=== PATIENT | female | born 1980 | race Caucasian/White ===

== ENCOUNTER 2016-12-05 10:20 | Outpatient (CLI) | payer OTHER ==
[2016-12-05 10:57] LABS: BASOPHILS # (AUTO) 0.1 K/uL (0.0-0.2); EOSINOPHILS # (AUTO) 0.1 K/uL (0.0-0.4); EOSINOPHILS % (AUTO) 1.9 % (0.0-4.0); HEMATOCRIT 38.8 % (36-48); LYMPHOCYTES # (AUTO) 2.3 K/uL (1.0-5.5); LYMPHOCYTES % (AUTO) 42.5 % (20.5-51.5); MEAN CORPUSCULAR HEMOGLOBIN 29 pg (27-31); MEAN CORPUSCULAR HGB CONC 33 % (32-36); MEAN CORPUSCULAR VOLUME 87 fL (79.0-98.0); MONOCYTES # (AUTO) 0.4 K/uL (0.0-1.0); MONOCYTES % (AUTO) 6.9 % (1.7-9.3); NEUTROPHILS # (AUTO) 2.6 K/uL (1.8-7.7); NEUTROPHILS % (AUTO) 47.7 % (40.0-70.0); PLATELET COUNT (AUTO) 273 K/uL (130-430); RED BLOOD CELL COUNT(AUTO) 4.47 MIL/uL (4.2-6.2); RED CELL DISTRIBUTION WIDTH 12.6 % (9.0-15.0); WHITE BLOOD COUNT (AUTO) 5.5 K/uL (4.8-10.8)
[2016-12-05 11:18] LABS: CALCIUM 8.7 mg/dL (8.4-11.0); CREATININE 0.65 mg/dL (0.55-1.30); POTASSIUM 3.8 mmol/L (3.5-5.1); THYROID STIMULATING HORMONE 1.93 uIu/mL (0.34-4.82)
[2016-12-05 17:48] LABS: BILIRUBIN,URINE NEGATIVE (NEGATIVE); BLOOD, URINE NEGATIVE (NEGATIVE); CLARITY/URINE CLEAR (CLEAR); COLOR,URINE YELLOW (YELLOW); GLUCOSE,URINE NEGATIVE (NEGATIVE); KETONES,URINE NEGATIVE (NEGATIVE); LEUKOCYTE ESTERASE ,URINE NEGATIVE (NEGATIVE); NITRITE, URINE NEGATIVE (NEGATIVE); PROTEIN URINE NEGATIVE (NEGATIVE); UROBILINOGEN,URINE 0.2 (0.2-1.0)
== END 2016-12-05 20:09 | disposition home or self-care (01) ==
LOC: SLB 10:20
PROVIDERS: ATTEND Psychiatry & Neurology Neurology
DX: N39.0 Urinary tract infection, site not specified (principal)
CPT/HCPCS: 36415; 80048; 81003; 82306; 82607; 84443-TC; 84450-TC; 84460-TC; 85025; 87086

== ENCOUNTER 2016-12-13 08:39 | Outpatient (CLI) | payer OTHER | END 2016-12-13 20:09 | disposition home or self-care (01) | LOC: SMI 08:39 | PROVIDERS: ATTEND Psychiatry & Neurology Neurology | DX: M50.21 Other cervical disc displacement, high cervical region (principal); G35 Multiple sclerosis; M50.31 Other cervical disc degeneration, high cervical region; G25.2 Other specified forms of tremor | CPT/HCPCS: 70553; 72156 ==

== ENCOUNTER 2016-12-17 10:33 | Outpatient (CLI) | payer OTHER ==
[2016-12-17] MEDS ORDERED: GADOPENTETATE DIMEGLUMINE 15 ML VIAL IV ONE (11:45)
== END 2016-12-17 21:08 | disposition home or self-care (01) ==
LOC: SMI 10:33
PROVIDERS: ATTEND Internal Medicine
DX: G35 Multiple sclerosis (principal)
CPT/HCPCS: 72157; A9579

== ENCOUNTER 2017-01-05 09:53 | Outpatient (CLI) | payer OTHER ==
[2017-01-05 10:56] LABS: INR 0.9 (0.8-1.2); PROTHROMBIN TIME 10.1 SECS (9.5-12.5)
[2017-01-05 11:04] LABS: CALCIUM 9.4 mg/dL (8.4-11.0); CREATININE 0.73 mg/dL (0.55-1.30); POTASSIUM 4.4 mmol/L (3.5-5.1)
== END 2017-01-05 20:25 | disposition home or self-care (01) ==
LOC: SLB 09:53
DX: Z01.812 Encounter for preprocedural laboratory examination (principal)
CPT/HCPCS: 36415; 80048; 84702-TC; 85610-TC; 85730-TC

== ENCOUNTER 2017-03-04 12:58 | Outpatient (CLI) | payer OTHER | END 2017-03-04 20:19 | disposition home or self-care (01) | LOC: SLB 12:58 | PROVIDERS: ATTEND Specialist | DX: G35 Multiple sclerosis (principal); N91.2 Amenorrhea, unspecified | CPT/HCPCS: 36415; 82306; 84144; 84702-TC ==

== ENCOUNTER 2017-03-06 08:01 | Outpatient (CLI) | payer OTHER | END 2017-03-06 20:21 | disposition home or self-care (01) | LOC: SMI 08:01 | PROVIDERS: ATTEND Psychiatry & Neurology Neurology | DX: G35 Multiple sclerosis (principal); N91.2 Amenorrhea, unspecified | CPT/HCPCS: 36415; 84144; 84702-TC ==

== ENCOUNTER 2017-05-23 09:56 | Outpatient (CLI) | payer OTHER ==
[2017-05-23 10:46] LABS: BASOPHILS % (AUTO) 0.4 % (0.0-2.0); EOSINOPHILS % (AUTO) 0.5 % (0.0-4.0); HEMATOCRIT 39.2 % (36-48); HEMOGLOBIN 12.9 g/dL (12.0-16.0); LYMPHOCYTES # (AUTO) 1.7 K/uL (1.0-5.5); LYMPHOCYTES % (AUTO) 21.3 % (20.5-51.5); MEAN CORPUSCULAR HEMOGLOBIN 28 pg (27-31); MEAN CORPUSCULAR HGB CONC 33 % (32-36); MEAN CORPUSCULAR VOLUME 85 fL (79.0-98.0); MONOCYTES # (AUTO) 0.4 K/uL (0.0-1.0); MONOCYTES % (AUTO) 5.5 % (1.7-9.3); NEUTROPHILS # (AUTO) 5.7 K/uL (1.8-7.7); NEUTROPHILS % (AUTO) 72.3 % (40.0-70.0); PLATELET COUNT (AUTO) 301 K/uL (130-430); RED BLOOD CELL COUNT(AUTO) 4.62 MIL/uL (4.2-6.2); RED CELL DISTRIBUTION WIDTH 11.8 % (9.0-15.0); WHITE BLOOD COUNT (AUTO) 7.8 K/uL (4.8-10.8)
[2017-05-27 14:00] LABS: HEPATITIS B SURFACE AG Negative (Negative); RUBELLA AB, IgG 1.13 index (Immune >0.99)
== END 2017-05-23 20:19 | disposition home or self-care (01) ==
LOC: SLB 09:56
PROVIDERS: ATTEND Specialist
DX: Z34.92 Encounter for supervision of normal pregnancy, unspecified, second trimester (principal)
CPT/HCPCS: 36415; 84443-TC; 85025; 86592; 86762; 86886; 86900; 86901; 87086; 87340

== ENCOUNTER 2017-08-21 08:56 | Outpatient (CLI) | payer OTHER ==
[2017-08-21 10:25] LABS: BASOPHILS % (AUTO) 0.4 % (0.0-2.0); EOSINOPHILS # (AUTO) 0.1 K/uL (0.0-0.4); EOSINOPHILS % (AUTO) 0.8 % (0.0-4.0); HEMATOCRIT 37.4 % (36-48); HEMOGLOBIN 12.2 g/dL (12.0-16.0); MEAN CORPUSCULAR HEMOGLOBIN 28 pg (27-31); MEAN CORPUSCULAR HGB CONC 33 % (32-36); MEAN CORPUSCULAR VOLUME 85 fL (79.0-98.0); MONOCYTES # (AUTO) 0.4 K/uL (0.0-1.0); MONOCYTES % (AUTO) 4.4 % (1.7-9.3); NEUTROPHILS # (AUTO) 7.7 K/uL (1.8-7.7); NEUTROPHILS % (AUTO) 74.4 % (40.0-70.0); PLATELET COUNT (AUTO) 304 K/uL (130-430); RED BLOOD CELL COUNT(AUTO) 4.41 MIL/uL (4.2-6.2); RED CELL DISTRIBUTION WIDTH 11.8 % (9.0-15.0); WHITE BLOOD COUNT (AUTO) 10.2 K/uL (4.8-10.8)
== END 2017-08-21 18:36 | disposition home or self-care (01) ==
LOC: SLB 08:56
PROVIDERS: ATTEND Specialist
DX: O99.019 Anemia complicating pregnancy, unspecified trimester (principal); D50.9 Iron deficiency anemia, unspecified; O09.529 Supervision of elderly multigravida, unspecified trimester; Z3A.00 Weeks of gestation of pregnancy not specified
CPT/HCPCS: 36415; 82947-TC; 85025; 86592

== ENCOUNTER 2017-09-16 16:37 | Outpatient (CLI) | payer OTHER ==
[2017-09-16 17:38] LABS: HEMATOCRIT 36.3 % (36-48); MEAN CORPUSCULAR HEMOGLOBIN 28 pg (27-31); MEAN CORPUSCULAR HGB CONC 33 % (32-36); MEAN CORPUSCULAR VOLUME 84 fL (79.0-98.0); PLATELET COUNT (AUTO) 264 K/uL (130-430); RED CELL DISTRIBUTION WIDTH 11.9 % (9.0-15.0); WHITE BLOOD COUNT (AUTO) 13.7 K/uL (4.8-10.8)
[2017-09-16 18:01] LABS: ALBUMIN 2.5 g/dL (3.4-4.8); CALCIUM 8.6 mg/dL (8.4-11.0); CREATININE 0.55 mg/dL (0.55-1.30); POTASSIUM 3.2 mmol/L (3.5-5.1); TOTAL BILIRUBIN 0.5 mg/dL (0.0-1.0)
[2017-09-16 19:16] LABS: BILIRUBIN,URINE 1+ (NEGATIVE); BLOOD, URINE NEGATIVE (NEGATIVE); CLARITY/URINE CLEAR (CLEAR); COLOR,URINE YELLOW (YELLOW); GLUCOSE,URINE NEGATIVE (NEGATIVE); KETONES,URINE 1+ (NEGATIVE); LEUKOCYTE ESTERASE ,URINE NEGATIVE (NEGATIVE); NITRITE, URINE NEGATIVE (NEGATIVE); PH,URINE 6.5 (5.0-8.0); PROTEIN URINE TRACE (NEGATIVE); UROBILINOGEN,URINE 0.2 (0.2-1.0)
[2017-09-16 19:38] LABS: BACTERIA,URINE FEW /HPF (None Seen); MUCUS,URINE 2+ /LPF (None Seen); RBC,URINE 0-3 /HPF (0-3); WBC,URINE 0-3 /HPF (0-3)
[2017-09-16 21:31] LABS: BAND % (MANUAL) 16 % (0-6)
[2017-09-16 21:32] LABS: ATYPICAL LYMPHOCYTES % 24 % (0-0); BASOPHILS % (MANUAL) 0 % (0-2); EOSINOPHILS % (MANUAL) 3 % (0-7); LYMPHOCYTES % (MANUAL) 21 % (20-46); MONOCYTES % (MANUAL) 6 % (0-11)
== END 2017-09-16 19:23 | disposition home or self-care (01) ==
LOC: SLB 16:37
PROVIDERS: ATTEND Internal Medicine
DX: J11.1 Influenza due to unidentified influenza virus with other respiratory manifestations (principal)
CPT/HCPCS: 36415; 80053; 81000-TC; 82306; 82607; 85007; 85027

== ENCOUNTER 2017-09-20 06:59 | Outpatient (CLI) | payer OTHER ==
[2017-09-20 07:38] LABS: HEMATOCRIT 34.7 % (36-48); HEMOGLOBIN 11.6 g/dL (12.0-16.0); MEAN CORPUSCULAR HEMOGLOBIN 28 pg (27-31); MEAN CORPUSCULAR HGB CONC 33 % (32-36); MEAN CORPUSCULAR VOLUME 83 fL (79.0-98.0); PLATELET COUNT (AUTO) 261 K/uL (130-430); RED CELL DISTRIBUTION WIDTH 12.7 % (9.0-15.0); WHITE BLOOD COUNT (AUTO) 13.3 K/uL (4.8-10.8)
[2017-09-20 08:24] LABS: ALBUMIN 2.4 g/dL (3.4-4.8); CALCIUM 8.6 mg/dL (8.4-11.0); CREATININE 0.53 mg/dL (0.55-1.30); POTASSIUM 3.8 mmol/L (3.5-5.1); TOTAL BILIRUBIN 0.6 mg/dL (0.0-1.0)
[2017-09-20 09:34] LABS: BASOPHILS % (MANUAL) 0 % (0-2); EOSINOPHILS % (MANUAL) 1 % (0-7); LYMPHOCYTES % (MANUAL) 17 % (20-46); MONOCYTES % (MANUAL) 18 % (0-11)
[2017-09-20 09:37] LABS: OTHER CELLS,MANUAL % 12 (0-0)
== END 2017-09-20 20:22 | disposition home or self-care (01) ==
LOC: SLB 06:59
PROVIDERS: ATTEND Specialist
DX: Z34.93 Encounter for supervision of normal pregnancy, unspecified, third trimester (principal); R79.89 Other specified abnormal findings of blood chemistry
CPT/HCPCS: 36415; 80053; 85007; 85027

== ENCOUNTER 2017-09-28 12:27 | Outpatient (CLI) | payer OTHER ==
[2017-09-28 13:10] LABS: ALBUMIN 2.3 g/dL (3.4-4.8); BILIRUBIN,DIRECT 0.2 mg/dL (0.0-0.3); TOTAL BILIRUBIN 0.3 mg/dL (0.0-1.0)
== END 2017-09-28 20:30 | disposition home or self-care (01) ==
LOC: SLB 12:27
PROVIDERS: ATTEND Specialist
DX: R79.89 Other specified abnormal findings of blood chemistry (principal)
CPT/HCPCS: 36415; 80076

== ENCOUNTER 2017-11-04 10:42 | Inpatient (IN) | payer OTHER ==
[~2017-11-04] VITALS: Ht 162.6 cm; Wt 59.9 kg
[2017-11-04] MEDS ORDERED: LR 1,000 ML IV ONE (10:54)
[2017-11-04] MEDS ORDERED: CEFAZOLIN 2 GM IVPB PREMIX 50 ML IV ONE (11:00)
[2017-11-04 11:39] LABS: BASOPHILS % (AUTO) 0.5 % (0.0-2.0); EOSINOPHILS # (AUTO) 0.1 K/uL (0.0-0.4); EOSINOPHILS % (AUTO) 1.1 % (0.0-4.0); HEMATOCRIT 35.2 % (36-48); HEMOGLOBIN 11.6 g/dL (12.0-16.0); LYMPHOCYTES % (AUTO) 31.7 % (20.5-51.5); MEAN CORPUSCULAR HEMOGLOBIN 27 pg (27-31); MEAN CORPUSCULAR HGB CONC 33 % (32-36); MEAN CORPUSCULAR VOLUME 80 fL (79.0-98.0); MONOCYTES # (AUTO) 0.8 K/uL (0.0-1.0); MONOCYTES % (AUTO) 8.6 % (1.7-9.3); NEUTROPHILS # (AUTO) 5.6 K/uL (1.8-7.7); NEUTROPHILS % (AUTO) 58.1 % (40.0-70.0); PLATELET COUNT (AUTO) 385 K/uL (130-430); RED BLOOD CELL COUNT(AUTO) 4.39 MIL/uL (4.2-6.2); RED CELL DISTRIBUTION WIDTH 13.3 % (9.0-15.0); WHITE BLOOD COUNT (AUTO) 9.4 K/uL (4.8-10.8)
[2017-11-04 11:40] LABS: BILIRUBIN,URINE NEGATIVE (NEGATIVE); BLOOD, URINE NEGATIVE (NEGATIVE); CLARITY/URINE CLEAR (CLEAR); COLOR,URINE YELLOW (YELLOW); GLUCOSE,URINE NEGATIVE (NEGATIVE); KETONES,URINE TRACE (NEGATIVE); LEUKOCYTE ESTERASE ,URINE NEGATIVE (NEGATIVE); NITRITE, URINE NEGATIVE (NEGATIVE); PROTEIN URINE NEGATIVE (NEGATIVE); UROBILINOGEN,URINE 0.2 (0.2-1.0)
[2017-11-04] MEDS ORDERED: LR 1,000 ML IV SCH ×2 (14:24→14:35)
[2017-11-04 14:30] VITALS: BP_SYST 102
[2017-11-04] MEDS ORDERED: KETOROLAC TROMETHAMINE 60 MG/2 ML VIAL IM PRN (14:30)
[2017-11-04] MEDS ORDERED: MORPHINE SULFATE 10MG/10ML PF AMP SP SCH (14:30)
[2017-11-04] MEDS ORDERED: DIPHENHYDRAMINE INJ 50 MG/ML VIAL IM PRN (14:30)
[2017-11-04] MEDS ORDERED: METOCLOPRAMIDE HCL 10 MG/2 ML VIAL IVP PRN (14:30)
[2017-11-04] MEDS ORDERED: NALOXONE HCL 0.4 MG/ML AMP (NARCAN) IVP PRN (14:30)
[2017-11-04] MEDS ORDERED: OXYTOCIN/NORMAL SALINE 1,000 ML IV ONE (14:35)
[2017-11-04] MEDS ORDERED: DOCUSATE SODIUM 100 MG CAPSULE PO PRN (14:45)
[2017-11-04] MEDS ORDERED: SIMETHICONE 80 MG TAB.CHEW PO PRN (14:45)
[2017-11-04] MEDS ORDERED: HYDROcodone/ACETAMIN 5-325 MG TAB (NORCO/ VICODIN) PO PRN (14:45)
[2017-11-04] MEDS ORDERED: LANOLIN 7 GM OINT. TP PRN (14:45)
[2017-11-04] MEDS ORDERED: OXYCODONE/ACETAMINOPHEN 5-325 TABLET PO PRN (14:45)
[2017-11-04] MEDS ORDERED: BISACODYL 10 MG/SUPPOSITORY RC PRN (14:45)
[2017-11-04] MEDS ORDERED: RHO(D) IMMUNE GLOBULIN/MALTOSE 1500 UNITS/1.3 ML (WINHRO) IM PRN (14:45)
[2017-11-04] MEDS ORDERED: MEASLES,MUMPS&RUBELLA VACC/PF 12500 UNIT/0.5 ML VIAL SUBQ PRN (14:45)
[2017-11-04] MEDS ORDERED: ANUSOL 1 EA SUPP.RECT (PREPARATION H) RC PRN (14:45)
[2017-11-04] MEDS ORDERED: DIPH-TET-PERTUS Vaccine 0.5 ML VIAL (ADACEL) I.M. PRN (14:45)
[2017-11-04] MEDS ORDERED: SENNOSIDES/DOCUSATE SODIUM 1 TAB TABLET(SENOKOT-S) PO PRN (14:45)
[2017-11-04] MEDS: CEFAZOLIN 1 GM IVPB PREMIX 50 ML IV SCH ×2 (18:01→23:51)
[2017-11-04] MEDS: ONDANSETRON HCL 4 MG/2 ML VIAL IVP PRN (20:22)
[2017-11-04] MEDS ORDERED: TEMAZEPAM 15 MG CAPSULE PO PRN (21:00)
[2017-11-04] MEDS: KETOROLAC TROMETHAMINE 30 MG VIAL IVP SCH (23:52)
[2017-11-05] MEDS: ONDANSETRON HCL 4 MG/2 ML VIAL IVP PRN (02:33)
[2017-11-05] MEDS: KETOROLAC TROMETHAMINE 30 MG VIAL IVP SCH ×3 (05:58→18:03)
[2017-11-05] MEDS: CEFAZOLIN 1 GM IVPB PREMIX 50 ML IV SCH (05:59)
[2017-11-05 06:08] LABS: BASOPHILS % (AUTO) 0.1 % (0.0-2.0); EOSINOPHILS % (AUTO) 0.1 % (0.0-4.0); HEMATOCRIT 31.6 % (36-48); HEMOGLOBIN 10.1 g/dL (12.0-16.0); LYMPHOCYTES # (AUTO) 1.8 K/uL (1.0-5.5); MEAN CORPUSCULAR HEMOGLOBIN 27 pg (27-31); MEAN CORPUSCULAR HGB CONC 32 % (32-36); MEAN CORPUSCULAR VOLUME 82 fL (79.0-98.0); MONOCYTES # (AUTO) 0.7 K/uL (0.0-1.0); MONOCYTES % (AUTO) 5.2 % (1.7-9.3); NEUTROPHILS # (AUTO) 10.2 K/uL (1.8-7.7); NEUTROPHILS % (AUTO) 80.6 % (40.0-70.0); PLATELET COUNT (AUTO) 323 K/uL (130-430); RED BLOOD CELL COUNT(AUTO) 3.83 MIL/uL (4.2-6.2); RED CELL DISTRIBUTION WIDTH 13.1 % (9.0-15.0); WHITE BLOOD COUNT (AUTO) 12.7 K/uL (4.8-10.8)
[2017-11-05] MEDS: IBUPROFEN 600 MG TABLET PO SCH (18:08)
[2017-11-06] MEDS: IBUPROFEN 600 MG TABLET PO SCH ×4 (00:11→17:59)
[2017-11-06] MEDS: OXYCODONE/ACETAMINOPHEN 5-325 TABLET PO PRN ×2 (08:56→16:48)
== END 2017-11-06 18:45 | disposition home or self-care (01) | DRG 766 ==
LOC: SPU 10:42
PROVIDERS: ADMIT Specialist; ATTEND Specialist
PROC: 10D00Z1 Extraction of Products of Conception, Low, Open Approach (ICD-10-PCS; principal; 2017-11-05)
PROC: 0W3F0ZZ Control Bleeding in Abdominal Wall, Open Approach (ICD-10-PCS; 2017-11-05)
PROC: 0UL70CZ Occlusion of Bilateral Fallopian Tubes with Extraluminal Device, Open Approach (ICD-10-PCS; 2017-11-05)
DX: O36.63X0 Maternal care for excessive fetal growth, third trimester, not applicable or unspecified (principal); O09.513 Supervision of elderly primigravida, third trimester; Z37.0 Single live birth; Z30.2 Encounter for sterilization; Z3A.39 39 weeks gestation of pregnancy
CPT/HCPCS: 36415; 81003; 85025; 86592; 86886; 86900; 86901; 94760; J0690; J1200; J1885; J2405; J2590

== ENCOUNTER 2018-05-16 09:21 | Outpatient (CLI) | payer OTHER ==
[2018-05-16 10:04] LABS: BASOPHILS # (AUTO) 0.1 K/uL (0.0-0.2); BASOPHILS % (AUTO) 0.8 % (0.0-2.0); EOSINOPHILS # (AUTO) 0.2 K/uL (0.0-0.4); EOSINOPHILS % (AUTO) 3.8 % (0.0-4.0); HEMATOCRIT 40.3 % (36-48); HEMOGLOBIN 13.4 g/dL (12.0-16.0); LYMPHOCYTES # (AUTO) 3.4 K/uL (1.0-5.5); LYMPHOCYTES % (AUTO) 53.9 % (20.5-51.5); MEAN CORPUSCULAR HEMOGLOBIN 28 pg (27-31); MEAN CORPUSCULAR HGB CONC 33 % (32-36); MEAN CORPUSCULAR VOLUME 85 fL (79.0-98.0); MONOCYTES # (AUTO) 0.4 K/uL (0.0-1.0); MONOCYTES % (AUTO) 6.6 % (1.7-9.3); NEUTROPHILS # (AUTO) 2.2 K/uL (1.8-7.7); NEUTROPHILS % (AUTO) 34.9 % (40.0-70.0); PLATELET COUNT (AUTO) 283 K/uL (130-430); RED BLOOD CELL COUNT(AUTO) 4.74 MIL/uL (4.2-6.2); RED CELL DISTRIBUTION WIDTH 12.5 % (9.0-15.0); WHITE BLOOD COUNT (AUTO) 6.3 K/uL (4.8-10.8)
[2018-05-16 10:18] LABS: TOTAL IRON BIND. CAPACITY 337 ug/dL (250-450)
[2018-05-17 08:29] LABS: FOLLICLE STIMULATION HORMONE 10.2 mIU/mL (.); LUETENIZING HORMONE 5.8 mIU/mL (.); PROLACTIN 32.3 ng/mL (4.8-23.3)
== END 2018-05-16 19:01 | disposition home or self-care (01) ==
LOC: SUS 09:21
PROVIDERS: ATTEND Internal Medicine
DX: N92.6 Irregular menstruation, unspecified (principal)
CPT/HCPCS: 36415; 76830-TC; 76857; 82670; 83001; 83002; 83540-TC; 83550-TC; 84146; 84443-TC; 85025

== ENCOUNTER 2018-06-16 06:55 | Outpatient (CLI) | payer OTHER ==
[2018-06-16 09:04] LABS: BASOPHILS % (AUTO) 0.9 % (0.0-2.0); EOSINOPHILS # (AUTO) 0.2 K/uL (0.0-0.4); HEMATOCRIT 43.6 % (36-48); HEMOGLOBIN 13.9 g/dL (12.0-16.0); LYMPHOCYTES # (AUTO) 2.1 K/uL (1.0-5.5); LYMPHOCYTES % (AUTO) 43.8 % (20.5-51.5); MEAN CORPUSCULAR HEMOGLOBIN 27 pg (27-31); MEAN CORPUSCULAR HGB CONC 32 % (32-36); MEAN CORPUSCULAR VOLUME 85 fL (79.0-98.0); MONOCYTES # (AUTO) 0.4 K/uL (0.0-1.0); NEUTROPHILS % (AUTO) 42.3 % (40.0-70.0); PLATELET COUNT (AUTO) 287 K/uL (130-430); RED BLOOD CELL COUNT(AUTO) 5.17 MIL/uL (4.2-6.2); RED CELL DISTRIBUTION WIDTH 12.5 % (9.0-15.0); WHITE BLOOD COUNT (AUTO) 4.7 K/uL (4.8-10.8)
[2018-06-16 09:11] LABS: BILIRUBIN,URINE NEGATIVE (NEGATIVE); BLOOD, URINE NEGATIVE (NEGATIVE); CLARITY/URINE CLEAR (CLEAR); COLOR,URINE YELLOW (YELLOW); GLUCOSE,URINE NEGATIVE (NEGATIVE); KETONES,URINE NEGATIVE (NEGATIVE); LEUKOCYTE ESTERASE ,URINE NEGATIVE (NEGATIVE); NITRITE, URINE NEGATIVE (NEGATIVE); PROTEIN URINE NEGATIVE (NEGATIVE); UROBILINOGEN,URINE 0.2 (0.2-1.0)
[2018-06-16 09:22] LABS: ALANINE AMINOTRANSFERASE 41 U/L (12-78); ALBUMIN 4.4 g/dL (3.4-4.8); ANION GAP 8 (5-15); C-REACTIVE PROTEIN QUANT < 0.2 mg/dL (0-0.5); CALCIUM 9.1 mg/dL (8.4-11.0); CHLORIDE 103 mmol/L (98-107); CHOLESTEROL 196 mg/dL (<200); CREATININE 0.55 mg/dL (0.55-1.30); GLUCOSE 76 mg/dL (70-99); HDL CHOLESTEROL 68 mg/dL (>55); LDL CHOLESTEROL 115 mg/dL (<100); POTASSIUM 3.8 mmol/L (3.5-5.1); SODIUM SERUM 139 mmol/L (136-145); THYROID STIMULATING HORMONE 3.34 uIu/mL (0.34-4.82); TOTAL BILIRUBIN 0.3 mg/dL (0.0-1.0); TRIGLYCERIDES 45 mg/dL (30-150); UREA NITROGEN, BLOOD 13 mg/dL (8-21); URIC ACID 3.3 mg/dL (2.4-7.0)
[2018-06-16 09:24] LABS: GFR AFRICAN AMERICAN 159 mL/min (>90)
[2018-06-16 09:34] LABS: ASPARTATE AMINOTRANSFERASE 31 U/L (10-37)
[2018-06-16 10:53] LABS: ERYTHROCYTE SEDIMENTATION RATE 1 MM/HR (0-20)
[2018-06-17 06:15] LABS: HEMOGLOBIN A1C 4.9 % (4.8-5.6)
[2018-06-17 12:14] LABS: RA LATEX TURBID <10.0 IU/mL (0.0-13.9)
[2018-06-17 18:10] LABS: ANTI NUCLEAR AB WITH REFLEX Negative (Negative)
== END 2018-06-16 19:59 | disposition home or self-care (01) ==
LOC: SLB 06:55
PROVIDERS: ATTEND Internal Medicine
DX: Z00.01 Encounter for general adult medical examination with abnormal findings (principal)
CPT/HCPCS: 36415; 80053; 80061; 81003; 82306; 82607; 83036; 84443-TC; 84550-TC; 85025; 85651-TC; 86038; 86140; 86431

== ENCOUNTER 2018-07-23 16:20 | Outpatient (CLI) | payer OTHER ==
[2018-07-23 17:30] LABS: FREE T4 (FREE THYROXINE) 0.6 ng/dL (0.6-1.6); THYROID STIMULATING HORMONE 2.66 uIu/mL (0.34-4.82)
[2018-07-24 14:52] LABS: T4 (THYROXINE) 5.8 ug/dL (4.5-12.0)
== END 2018-07-23 18:51 | disposition home or self-care (01) ==
LOC: SLB 16:20
PROVIDERS: ATTEND Specialist
DX: R53.83 Other fatigue (principal)
CPT/HCPCS: 36415; 82607; 84436; 84439; 84443-TC; 84479

== ENCOUNTER 2018-10-13 09:00 | Outpatient (CLI) | payer OTHER | END 2018-10-13 18:59 | disposition home or self-care (01) | LOC: SMI 09:00 | PROVIDERS: ATTEND Internal Medicine | DX: G35 Multiple sclerosis (principal); I99.8 Other disorder of circulatory system | CPT/HCPCS: 70551 ==